=== PATIENT | female | born 1980 | race Caucasian/White ===

== ENCOUNTER 2018-09-19 09:16 | Emergency (ER) | payer OTHER ==
[~2018-09-19] VITALS: Ht 160 cm; Wt 77.6 kg
[2018-09-19 09:31] VITALS: Ht 160 cm; Wt 77.6 kg
[2018-09-19 10:38] LABS: microscopic required? YES; urine erythrocyte 2+ (NEGATIVE)
[2018-09-19 10:42] LABS: PLATELET COUNT 243 x10^3mcL (130-400); RED CELL DISTRIBUTION WIDTH 13.5 % (11.5-14.5)
[2018-09-19 10:48] LABS: BASOPHIL % 0 % (0-2); CALCIUM 9.1 mg/dL (8.5-10.1); CARBON DIOXIDE 25.2 mmol/L (21-32); CHLORIDE SERUM 102 mmol/L (98-107); GFR1 > 60 mL/min; GLUCOSE SERUM 93 mg/dL (74-106); POTASSIUM SERUM 3.6 mmol/L (3.5-5.1); SODIUM SERUM 137 mmol/L (136-145)
[2018-09-19 10:53] LABS: ALBUMIN 3.5 g/dL (3.4-5.0); ALKALINE PHOSPHATASE 52 U/L (46-116); ALT/SGPT 18 U/L (14-59); AST/SGOT 12 U/L (15-37); BILIRUBIN TOTAL 0.9 mg/dL (0.20-1.00); TOTAL PROTEIN, SERUM 7.8 g/dL (6.4-8.2)
[2018-09-19 17:21] VITALS: BP 113/67
== END 2018-09-19 17:23 | disposition short-term general hospital (02) ==
LOC: ED 09:16
PROVIDERS: Emergency Medicine
DX: N10 Acute pyelonephritis (principal); N13.9 Obstructive and reflux uropathy, unspecified; Z87.442 Personal history of urinary calculi
CPT/HCPCS: J1885; J2270; J2405; J2543; J2765

== ENCOUNTER 2020-01-04 07:15 | Emergency (ER) | payer OTHER ==
[~2020-01-04] VITALS: Ht 162.6 cm; Wt 78.9 kg
[2020-01-04 07:34] VITALS: BP 144/89; Ht 162.6 cm; Wt 78.9 kg
== END 2020-01-04 10:30 | disposition home or self-care (01) ==
LOC: ED 07:15
DX: J02.9 Acute pharyngitis, unspecified (principal); Z98.51 Tubal ligation status; Z87.442 Personal history of urinary calculi

== ENCOUNTER 2020-01-07 06:27 | Emergency (ER) | payer OTHER ==
[~2020-01-07] VITALS: Ht 160 cm; Wt 79.5 kg
[2020-01-07 06:32] VITALS: Ht 160 cm; Wt 79.5 kg
[2020-01-07 07:14] VITALS: BP 128/89
== END 2020-01-07 07:14 | disposition home or self-care (01) ==
LOC: ED 06:27
DX: B08.5 Enteroviral vesicular pharyngitis (principal); Z87.442 Personal history of urinary calculi; Z98.51 Tubal ligation status